=== PATIENT | male | born 1980 | race Caucasian/White ===

== ENCOUNTER 2017-12-08 20:05 | Inpatient (IN) | payer OTHER ==
[~2017-12-08] VITALS: Ht 185.4 cm; Wt 141.7 kg
[2017-12-08] MEDS ORDERED: PRINIVIL20 MG PO (21:22)
--- OUTSIDE RECORDS SUMMARY | 2017-12-08 21:22 | XMS | Clinical Summary ---
Demographics + + + | Address | [address] | | | [place] [address] | + + + | Home Phone | | + + + | Preferred Language | Unknown | + + + | Marital Status | Single | + + + | Alevism Affiliation | Unknown | + + + | Race | White | + + + | Ethnic Group | Not or | + + + Author + + + | Author | [facility] | + + + | Organization | [facility] | + + + | Address | Unknown | + + + | Phone | Unavailable | + + + Support +------+ +---------+ + | Name | Relationship | Address | Phone | +------+ +---------+ + | NONE | ECON | Unknown | Unavailable | +------+ +---------+ + Care Team Providers + +------+ + | Care Senior Partner Name | Role | Phone | + +------+ + | Adrián Jiménez DO | PP | | + +------+ + Source Comments LILIA is fully live on both [facility] and [facility] Allergies + + + + + + | Active Allergy | Reactions | Severity | Noted | Comments | | | | | Date | | + + + + + + | Cephalexin | Hives | | 12/26/19 | | | Monohydrate | | | 15 | | + + + + + + Current Medications + + +---------+---------+------+------+-------+ | Prescription | Sig. | Disp. | Refills | Star | End | Statu | | | | | | t | Date | s | | | | | | Date | | | + + +---------+---------+------+------+-------+ | albuterol (PROAIR | Inhale 2 puffs every | 8.5 g | 3 | 08/2 | | Activ | | HFA) 90 | six hours as | | | 6/20 | | e | | mcg/actuation | needed. | | | 15 | | | | inhalation HFA | | | | | | | | aerosol inhaler | | | | | | | + + +---------+---------+------+------+-------+ | mupirocin | apply by topical | 15 g | 2 | 12/1 | | Activ | | (BACTROBAN) 2 % | route 3 times every | | | 20 | | e | | topical ointment | day a small amount | | | 15 | | | | | to the affected area | | | | | | + + +---------+---------+------+------+-------+ | metoprolol | TAKE ONE TABLET BY | 45 | 1 | 12/1 | | Activ | | tartrate 50 mg oral | MOUTH EVERY MORNING | tablet | | 4/20 | | e | | tablet | AND ONE-HALF TABLET | | | 15 | | | | | EVERY EVENING | | | | | | + + +---------+---------+------+------+-------+ Active Problems Not on file Social History + +-------+ +--------+------+ | Tobacco Use | Types | Packs/Day | Years | Date | | | | | Used | | + +-------+ +--------+------+ | Current Every Day | | | | | | Smoker | | | | | + +-------+ +--------+------+ + + +---------+ + | Alcohol Use | Drinks/We | oz/Week | Comments | | | ek | | | + + +---------+ + | No | 0 | 0.0 | | | | Standard | | | | | drinks or | | | | | | | | | | equivalen | | | | | t | | | + + +---------+ + + + + | Sex Assigned at | Date Recorded | | | | + + + | Not on file | | + + + Last Filed Vital Signs + + + + | Vital Sign | Reading | Time Taken | + + + + | Blood Pressure | 120/70 | 12/25/2014 10:17 AM PDT | + + + + | Pulse | 65 | 12/25/2014 10:17 AM PDT | + + + + | Temperature | - | - | + + + + | Respiratory Rate | - | - | + + + + | Oxygen Saturation | 97% | 12/25/2014 10:17 AM PDT | + + + + | Inhaled Oxygen | - | - | | Concentration | | | + + + + | Weight | 117.5 kg (259 lb) | 12/25/2014 10:17 AM PDT | + + + + | Height | 188 cm (6' 2") | 12/25/2014 10:17 AM PDT | + + + + | Body Mass Index | 33.25 | 12/25/2014 10:17 AM PDT | + + + + Plan of Treatment + + + + + | Health Maintenance | Due Date | Last Done | Comments | + + + + + | HIV SCREEN | | | | | | 9 | | | + + + + + | TOBACCO CESSATION | | | | | INTERVENTION | 9 | | | + + + + + | Diphtheria,Tetanus,P | | | | | ertussis | 8 | | | | (DTaP/Tdap/Td) (1 - | | | | | Tdap) | | | | + + + + + | Pneumococcal (Adult) | | | | | (1 of 1 - PPSV23) | 8 | | | + + + + + | INFLUENZA VACCINE | | | | | (FLU SHOT) | 8 | | | + + + + + Results Not on filefrom Last 3 Months Insurance + +--------+ +--------+-------+---------+ | Payer | Benefi | Subscriber | Type | Phone | Address | | | t Plan | ID | | | | | | / | | | | | | | Group | | | | | + +--------+ +--------+-------+---------+ | IRRIGATION TECHNICIAN MEDICAID | IRRIGATION TECHNICIAN | xxxxxxxxx | Medica | | | | | PACIFI | | id | | | | | [employer] | | | | | | | E | | | | | + +--------+ +--------+-------+---------+ + +--------+ +--------+ + + | Guarantor Name | Accoun | Relation to | Date | Phone | Billing Address | | | t Type | Patient | of | | | | | | | | | | + +--------+ +--------+ + + | STONEY ERNST | Person | Self [birth year] Home: | [facility] [address] | | | al/Fam | | 1979 | [phone] [place] [address] | | | tisha | | | [phone] | | + +--------+ +--------+ + +
[2017-12-08] MEDS ORDERED: ZESTORETIC 20-1 EACH PO (21:23)
[2017-12-08] MEDS ORDERED: OMEPRAZOLE20 MG PO (21:24)
--- NOTE | 2017-12-09 01:56 | NUR ---
PATIENTS ADMISSION COMPLETED. PATIENT DENIES ANY PAIN. PATIENT EDUCATED ON THE USE OF THE CALL LIGHT. EDUCATION PROVIDED. ALL QUESTIONS ANSWERED. CALL LIGHT IN REACH.
--- NOTE | 2017-12-09 04:00 | NUR ---
PATIENT'S 2 K-RIDERS HAVE FINISHED, PATIENT HAS WALKED TO THE BATHROOM AND VOIDED 700MLS. SCD'S IN PLACE. PATIENT DID NOT WANT TO PERFORM SITZ BATH YET HE WANTED TO SLEEP. PATIENT IS NPO. IV D5LR RUNNING AT 85MLS AN HOUR. CALL LIGHT IN REACH. PATIENT HAS SOME PERIPHERAL VISION.
--- NOTE | 2017-12-09 06:46 | NUR ---
PATIENT'S COMPLETED HIS SITZ BATH AND IS BACK IN BED RESTING AT THIS TIME. PATIENT HAS REPORTED NO PAIN ALL SHIFT.
--- NOTE | 2017-12-09 08:20 | NUR ---
PT RESTING IN BED LISTENING TO TV AT THIS TIME; PT PLEASANT, CALM AND COOPERATIVE WITH NO C/O PAIN, NO N/V. PT HAD SITZ BATH THIS AM AND STATES THAT HIS PERIANAL ABSCESS DOES NOT HURT. SCANT TO SMALL AMOUNT OF PURULENT, SEROSANG DRAINAGE. NO FOUL ODOR. CHUX PADS CHANGED PRN. PT IS LEGALLY BLIND BUT IS ORIENTED TO ROOM WITH HIS PERIPHERAL VISION. PT STRONG AND STEADY ON HIS FEET; ABLE TO AMBULATE INDEPENDENTLY IN ROOM. D5LR RUNNING AT 85 ML/HR WITH NO PROBLEMS. POTASSIUM WAS ATTEMPTED BUT PT C/O BURNING IN HIS PIV. I STOPPED THIS AND WILL SPEAK TO PHARMACY ABOUT GIVING KCLOR WITH LIDOCAINE ADDED. PT REFUSED SCD AT THIS TIME. PT REMAINS NPO. ROOM AIR. ASSESSMENT COMPLETE. NO OTHER QUESTIONS OR CONCERNS AT THIS TIME. CALL LIGHT WITHIN REACH. FALL PRECAUTIONS IN PLACE. WILL CONTINUE TO MONITOR.
--- NOTE | 2017-12-09 10:25 | NUR ---
PT RESTING IN BED AT THIS TIME WITH NO C/O PAIN. POTASSIUM WITH LIDOCAINE HAS BEEN INTITIATED AT THIS TIME; PT STATES THAT THERE IS NO BURNING AND IT IS NOW RUNNING SUCCESSFULLY THROUGH THE PUMP. HE HAS NO QUESITONS OR CONCERNS. CALL LIGHT WITHIN REACH. FALL PRECAUTIONS IN PLACE. WILL CONTINUE TO MONITOR.
--- NOTE | 2017-12-09 11:26 | HP ---
[facility] [address], [place] [address] Signed ADMISSION DATE: 12/08/2017 REASON FOR ADMISSION: Significant perirectal abscess with spontaneous drainage. HISTORY OF PRESENT ILLNESS: This 37-year-old white man has had 10 days of worsening perianal pain and swelling. This evening, he had spontaneous necessitation of what appears to be a right perirectal abscess with copious amounts of bloody purulent material. This all occurred at home. His girlfriend who is estranged had Crohn disease, examined in this area and found it to be problematic in appearance and insisted the patient presented to the emergency room. He was evaluated by Dr. Banegas, who noted erythema and recent perirectal drainage. I was consulted in that regard and my examination showed the skin to be macerated and not simply that of a simple drainage of abscess, but possibly more complex than that and on that basis, I have recommended admission for antibiotics, sitz baths, and possible consideration for exam under anesthesia, depending on progress. It is notable the patient has no history of diabetes or immunocompromise otherwise. PAST MEDICAL HISTORY: Significant for gastroesophageal reflux, hypertension, self described irritable bowel syndrome, and blindness. 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 SOCIAL HISTORY: He does smoke on a daily basis. Drinks alcohol weekly and denies any drug use. He is disabled related to his blindness. MEDICATIONS: At admission include lisinopril and hydrochlorothiazide 20/25 p.o. daily as well as Prilosec 20 mg daily and apparently lisinopril 5 mg at bedtime in addition to his other preparation. REVIEW OF SYSTEMS: He denies any shortness of breath or chest pain. His pain is markedly improved since spontaneous necessitation of perirectal abscess at home. He denies any dysphagia. Has had no hematemesis. PHYSICAL EXAMINATION: GENERAL: An obese, functionally blind man accompanied by his significant other Electronically Signed By: BERNADINE HOLGUIN MD 12/09/17 1126 PATIENT NAME: ELISABETH ERNST HISTORY AND PHYSICAL DATE OF : 78 REPORT #: [id number] PHYSICIAN: BERNADINE HOLGUIN MD PCP: DENISE FORBES REPORT IS CONFIDENTIAL AND NOT TO BE RELEASED WITHOUT AUTHORIZATION [facility] [address], [place] [address] Signed girlfriend. Trachea is midline. CHEST: Clear. HEART: Regular without murmur. ABDOMEN: Obese but soft. In the lateral decubitus position, left side down. Examination of the perianal area is undertaken. There was a fair amount of bloody mucoid purulent material that has been drained already. Appears to be area of necessitation in the right medial superior aspect. The skin appears somewhat macerated and filling discolored. There is no crepitus. EXTREMITIES: Show no clubbing, cyanosis, or edema. I have asked Dr. Banegas to obtain lab studies for admission. White cell and hematocrit and so forth were not available from my computer inspection. He was noted to have a low potassium of 3.0 and bicarb is 26. He has no clinical evidence of systemic sepsis or necrotizing fasciitis of the perineum though certainly and recently spontaneously drained perirectal abscess was quite notable. We will continue to monitor him, initiate sitz bath as described, and broad-spectrum antibiotic meropenem. Re-evaluation in the morning may allow for continued conservative management, but if there appears to be undrained purulence, then exam under anesthesia and perirectal abscess drainage would be more clearly indicated. MD LES Velasquez/MODL /[id number] cc: Justin Banegas MD Copies: JUSTIN BANEGAS MD ~ Electronically Signed By: BERNADINE HOLGUIN MD 12/09/17 1126 PATIENT NAME: ELISABETH ERNST HISTORY AND PHYSICAL DATE OF : [birth year] REPORT #: [id number] PHYSICIAN: BERNADINE HOLGUIN MD PCP: DENISE FORBES REPORT IS CONFIDENTIAL AND NOT TO BE RELEASED WITHOUT AUTHORIZATION
--- NOTE | 2017-12-09 12:15 | NUR ---
PT RESTING IN BED AT THIS TIME. NO QUESTIONS OR CONCERNS. 2 ORAL ABX GIVEN AT THIS TIME; EDUCATION GIVEN ON THESE MEDICATIONS. HE'S AWAITING DC AND STATES HIS READINESS. SITZ BATH FOR TAKEHOME READY AT BEDSIDE FOR WHENEVER HE IS LEAVING. CALL LIGHT WITHIN REACH. WILL CONTINUE TO MONITOR.
--- NOTE | 2017-12-09 12:24 | NUR ---
MED REC COMPLETE
--- NOTE | 2017-12-09 14:01 | NUR ---
NO QUESTIONS OR CONCERNS. PT RELAXING IN BED WITH NO C/O PAIN, NO QUESTIONS OR CONCERNS. CALL LIGHT WITHIN REACH. WILL CONTINUE TO MONITOR AND FOLLOW UP WITH DC ORDERS.
[2017-12-09] MEDS ORDERED: CIPROFLOXACIN500 MG PO (15:24)
[2017-12-09] MEDS ORDERED: METRONIDAZOLE250 MG PO (15:24)
--- NOTE | 2017-12-09 16:02 | NUR ---
pt had elevated blood pressure. nurse notifed. pt family here to give him a ride.
== END 2017-12-09 16:11 | disposition home or self-care (01) | DRG 395 ==
LOC: ED 20:05 → MS 20:08
PROVIDERS: ADMIT Surgery
DX: K61.1 Rectal abscess (principal); K21.9 Gastro-esophageal reflux disease without esophagitis; I10 Essential (primary) hypertension; F17.210 Nicotine dependence, cigarettes, uncomplicated; H54.7 Unspecified visual loss
CPT/HCPCS: 36415; 80048; 80053; 85025; 96365; 96375; 99284; 99406; J1644; J2060; J2185; J3480; J7030; J7120

== ENCOUNTER 2018-06-07 08:31 | Day surgery (SDC) | payer OTHER ==
[~2018-06-07] VITALS: Ht 185.4 cm; Wt 139.2 kg
[~2018-06-07 08:31] MED LIST: BACTRIM DS TAB1 EACH PO; CIPROFLOXACIN500 MG PO; CLINDAMYCIN HC300 MG PO; IBU800 MG PO; METRONIDAZOLE250 MG PO; NORCO 5-325 TA1 EACH PO; OMEPRAZOLE20 MG PO; PRINIVIL20 MG PO; ZESTORETIC 20-1 EACH PO
--- NOTE | 2018-06-07 10:24 | NUR ---
06/07/18 1024 Margo Melendez 1000 PT ARRIVED IN PACU SLEEPY WITH NO C/O'S. ABD SOFT AND PASSING FLATUS. 1015 OXYGEN REMOVED. SATS 94% ON RA. 1020 SITTING UP IN BED SIPPING ON JUICE.
--- NOTE | 2018-06-08 07:28 | OR ---
[facility] [address], [place] [address] Signed DATE OF OPERATION: 06/07/2018 SURGEON: Tenzin Sumner MD PREOPERATIVE DIAGNOSES: 1. Perianal abscess with drainage. 2. Rectal/perianal pain. 3. Grandfather with a history of colon cancer. 4. Personal history of pubic hidradenitis suppurativa. POSTOPERATIVE DIAGNOSES: 1. Left anterior perianal abscess (? fistula). 2. Minimal to moderate internal hemorrhoids. 3. Single diverticulum at 55 cm. PROCEDURE PERFORMED: Colonoscopy without biopsy. ESTIMATED BLOOD LOSS: None. INDICATIONS: Stoney is a 38-year-old gentleman who unfortunately is now legally blind after LASIK surgery. In November 2017, he developed perirectal pain, swelling, and drainage. He had been to the emergency room. He had been admitted on meropenum and said that it spontaneously drained. He then had incision and drainage of couple of separate areas by the emergency room physician. He said it cleared up and he has been off antibiotics, but then it builds up pressure, it drains, and then he feels better. He ended up with a CT scan of abdomen and pelvis, and then looked like he had a couple of abscesses new to anus, but no pelvic lymphadenopathy, no inflammatory changes of the rectum or colon to suggest Crohn's disease. He does have a history of keloid scars particularly on his left ear. He has continued to have some pain and drainage intermittently, so his primary care provider had asked him to see me with respect to the above. He said he uses andrea-pads and paper towels to collect the drainage. He also told me that his grandfather had colon cancer. However, no inflammatory bowel disease in the family. He did show me his pubic area, which has some dry chronic hidradenitis suppurativa scars. With his friend in the room and our medical nurse, we did look at the anal area. He has 2 small areas bilaterally at the 10 o'clock position and at the 2 o'clock position. He also has a slightly larger area at the 7 o'clock position. That area is soft and it has drained some pus. Similarly, it was the same way today. He does have some perianal Electronically Signed By: TENZIN SUMNER MD 06/08/18 0728 PATIENT NAME: STONEY ERNST OPERATIVE REPORT DATE OF : 78 REPORT #: [id number] PHYSICIAN: TENZIN SUMNER MD PCP: DENISE HARE PA-C REPORT IS CONFIDENTIAL AND NOT TO BE RELEASED WITHOUT AUTHORIZATION [facility] [address], [place] [address] Signed skin tags. He was quite nervous and did allow me to finally do a digital rectal exam. Because of his large body habitus, I really could not feel his prostate, but he does have good sphincter tone. I did not specifically feel a fistula tract at that time. The anoscope was out of question and he was not going to allow that in the office. I explained to Stoney's friend, I think he it is cabral to undergo a colonoscopy and make sure there is nothing in the rectum or above the rectum that might be contributing to this such as Crohn's disease. We have reviewed colonoscopy in detail. I have given him a pamphlet to review at home. He understands the nature of the test along with the risks including, but not limited to gas, bloating, crampy abdominal pain, bleeding, perforation, requiring surgery, and missed diagnosis. We also discussed the need for IV conscious sedation. He had expressed understanding and wished to proceed. PROCEDURE NOTE: Stoney was taken into our endoscopy suite and placed in the left lateral decubitus position. He was given a total of 10 mg of Versed and 200 mcg of fentanyl to cover the case. Again, he has that area at the 7 o'clock that is a little scarred, but general soft and draining some pus. Today, I could feel some induration travelling down in a radial fashion towards the anterior midline. Consequently, I suspect he might have a fistula tract. Again, he has good sphincter tone. No other major issues outside the anus. The adult colonoscope was then introduced and advanced all the way around into the cecum under direct visualization of camera without difficulty. His prep was good. We took pictures of cecum, ileocecal valve, and his rectum for photodocumentation. We saw no pathology throughout his entire colon or rectum. He had a single diverticulum up to 55 cm. Upon retroflexion of the scope, he does have moderate standard internal hemorrhoid columns. After this, the gas was suctioned out and the colonoscope removed. Stoney tolerated the procedure quite well. RECOMMENDATIONS: I will see Stoney back in my office in 7 to 14 days to review his results. Even though he is afraid of surgery, probably he might consider having this addressed in a surgical manner. Tenzin Sumner MD ALB/MODL /[id number] Electronically Signed By: TENZIN SUMNER MD 06/08/18 0728 PATIENT NAME: STONEY ERNST OPERATIVE REPORT DATE OF : 78 REPORT #: [id number] PHYSICIAN: TENZIN SUMNER MD PCP: DENISE HARE PA-C REPORT IS CONFIDENTIAL AND NOT TO BE RELEASED WITHOUT AUTHORIZATION [address] [address] Signed cc: MD Denise Tavarez PA Copies: TENZIN SUMNER MD ~ Electronically Signed By: TENZIN SUMNER MD 06/08/18 0728 PATIENT NAME: STONEY ERNST OPERATIVE REPORT DATE OF : 78 REPORT #: [id number] PHYSICIAN: TENZIN SUMNER MD PCP: DENISE HARE PA-C REPORT IS CONFIDENTIAL AND NOT TO BE RELEASED WITHOUT AUTHORIZATION
== END 2018-06-07 10:37 | disposition home or self-care (01) ==
LOC: DS 08:31 → OPS 08:31
PROVIDERS: Colon & Rectal Surgery
PROC: 0DJD8ZZ Inspection of Lower Intestinal Tract, Via Natural or Artificial Opening Endoscopic (ICD-10-PCS; principal; 2018-06-07 09:45)
DX: K61.0 Anal abscess (principal); K64.8 Other hemorrhoids; K57.30 Diverticulosis of large intestine without perforation or abscess without bleeding; I10 Essential (primary) hypertension; K21.9 Gastro-esophageal reflux disease without esophagitis; E78.5 Hyperlipidemia, unspecified; E66.9 Obesity, unspecified; F17.210 Nicotine dependence, cigarettes, uncomplicated; Z88.5 Allergy status to narcotic agent; Z88.6 Allergy status to analgesic agent; Z88.1 Allergy status to other antibiotic agents; Z79.899 Other long term (current) drug therapy; Z80.0 Family history of malignant neoplasm of digestive organs; Z68.41 Body mass index [BMI] 40.0-44.9, adult
CPT/HCPCS: 99153; G0500; J2250; J3010; J7120

== ENCOUNTER 2020-10-13 09:56 | Emergency (ER) | payer OTHER ==
[~2020-10-13] VITALS: Ht 188 cm; Wt 136.1 kg
[2020-10-13] MEDS ORDERED: AMLODIPINE BESYL5 MG (10:14)
[2020-10-13] MEDS ORDERED: LISINOPRIL-HCT1 EACH PO (10:14)
[2020-10-13] MEDS ORDERED: KLOR-CON 1010 MEQ (10:16)
[2020-10-13] MEDS ORDERED: CLEOCIN HCL300 MG PO (10:17)
== END 2020-10-13 10:35 | disposition home or self-care (01) ==
LOC: ED 09:56
DX: K04.7 Periapical abscess without sinus (principal); I10 Essential (primary) hypertension; F17.200 Nicotine dependence, unspecified, uncomplicated; Z88.8 Allergy status to other drugs, medicaments and biological substances; Z88.5 Allergy status to narcotic agent; Z88.1 Allergy status to other antibiotic agents; Z79.899 Other long term (current) drug therapy
CPT/HCPCS: 99282

== ENCOUNTER 2022-08-16 19:54 | Emergency (ER) | payer OTHER ==
[~2022-08-16] VITALS: Ht 188 cm; Wt 152.4 kg
[~2022-08-16 19:54] MED LIST changes: +AMLODIPINE BESYL5 MG; +CLEOCIN HCL300 MG PO; +KLOR-CON 1010 MEQ; +LISINOPRIL-HCT1 EACH PO
[2022-08-16] MEDS ORDERED: CLINDAMYCIN HC300 MG PO (20:45)
[2022-08-16] MEDS ORDERED: HYDROCODON-ACE1 EA10 PO (21:31)
[2022-08-16 21:57] VITALS: BP 145/103
== END 2022-08-16 21:57 | disposition home or self-care (01) ==
LOC: ED 19:54
DX: K04.7 Periapical abscess without sinus (principal); I10 Essential (primary) hypertension; E11.9 Type 2 diabetes mellitus without complications; F17.200 Nicotine dependence, unspecified, uncomplicated; Z88.5 Allergy status to narcotic agent; Z88.1 Allergy status to other antibiotic agents; Z88.6 Allergy status to analgesic agent; Z79.899 Other long term (current) drug therapy
CPT/HCPCS: 64400; 99282-25; A9270